=== PATIENT | female | born 2000 | race Caucasian/White ===

== ENCOUNTER 2018-06-05 14:09 | Emergency (ER) | payer MEDICAID ==
--- NOTE | 2018-06-05 14:31 | EDM.PDOC ---
ED HPI GENERAL MEDICAL PROBLEM - General Chief Complaint: Flank Pain Stated Complaint: KIDNEY PAIN Time Seen by Provider: 06/05/18 14:20 Source of Information: Reports: Patient, Family History Limitations: Reports: No Limitations - History of Present Illness INITIAL COMMENTS - FREE TEXT/NARRATIVE: Summer comes into [facility] ED with a week long hx of R CVA pain, dull and occasionally sharp at times. Pain is nonradiating, not associated with stooling or voiding, eating or fasting. There is no injury hx. She occasionally feels some nausea. She has tried no meds. - Related Data Allergies Allergy/AdvReac Type Severity Reaction Status Date / Time No Known Allergies Allergy Verified 06/05/18 14:22 Home Meds: Home Meds Ciprofloxacin HCl [Cipro] 250 mg PO BID #14 tablet 06/05/18 [Rx] ED ROS GENERAL - Review of Systems Review Of Systems: See Below Constitutional: Reports: No Symptoms HEENT: Reports: No Symptoms Respiratory: Reports: No Symptoms Cardiovascular: Reports: No Symptoms Endocrine: Reports: No Symptoms GI/Abdominal: Reports: Nausea : Reports: Other (R CVA pain) Musculoskeletal: Reports: Back Pain (R CVA) Skin: Reports: No Symptoms Neurological: Reports: No Symptoms Psychiatric: Reports: No Symptoms Hematologic/Lymphatic: Reports: No Symptoms Immunologic: Reports: No Symptoms ED EXAM,LOWER BACK PAIN/INJURY - Physical Exam Exam: See Below Exam Limited By: No Limitations General Appearance: Alert, WD/WN, No Apparent Distress, Obese Head: Atraumatic, Normocephalic Neck: Normal Inspection, Supple, Non-Tender, Full Range of Motion Respiratory/Chest: Lungs Clear, Normal Breath Sounds, Chest Non-Tender Cardiovascular: Regular Rate, Rhythm, No Murmur GI/Abdominal: Normal Bowel Sounds, Soft, Non-Tender, No Organomegaly, No Distention, No Mass (Female) Exam: Deferred Rectal (Female) Exam: Deferred Back Exam: Normal Inspection, Full Range of Motion, CVA Tenderness (R) Extremities: Normal Inspection, Normal Range of Motion, Non-Tender, No Pedal Edema, Normal Capillary Refill Neurological: Alert, Normal Mood/Affect, Normal Dorsiflexion, CN II-XII Intact, Normal Gait, No Motor/Sensory Deficits, Oriented x 3 Psychiatric: Normal Affect, Normal Mood Skin Exam: Warm, Dry, Intact, Normal Color, No Rash Lymphatic: No Adenopathy Course - Vital Signs Text/Narrative:: Following assessment, the UA noted 100 RBCs/HPF, 100 WBC/HPF, large bacteria, UC set up. The CBC and BMP were baseline. A subsequent noncontrast ABD-PELVIC CT was performed, noting no stone disease, normal appearance of kidneys and ureters, and some evidence of cystitis. I dispensed Cipro 250 mg bid for treatment. Last Recorded V/S: Last Vital Signs Temp 36.6 C 06/05/18 14:20 Pulse 127 H 06/05/18 14:20 Resp 22 H 06/05/18 14:20 BP 129/76 06/05/18 14:20 Pulse Ox 100 06/05/18 14:20 - Orders/Labs/Meds Orders: Active Orders 24 hr Category Date Time Status Abdomen Pelvis wo Cont [CT] Stat Exams 06/05/18 14:45 Taken CULTURE URINE [RM] Stat Lab 06/05/18 14:44 Ordered Labs: Laboratory Tests 06/05/18 06/05/18 06/05/18 Range/Units 14:15 15:00 15:00 WBC 8.6 (4.5-12.0) X10-3/uL RBC 4.83 (3.23-5.20) x10(6)uL Hgb 13.1 (11.5-15.5) g/dL Hct 40.1 (30.0-51.3) % MCV 83.1 (80-96) fL MCH 27.1 L (27.7-33.6) pg MCHC 32.6 (32.2-35.4) g/dL RDW 12.9 (11.5-15.5) % Plt Count 410 H (125-369) X10(3)uL MPV 8.4 (7.4-10.4) fL Neut % (Auto) 72.1 (46-82) % Lymph % (Auto) 19.6 (13-37) % Archer % (Auto) 6.1 (4-12) % Eos % (Auto) 2 (1.0-5.0) % Baso % (Auto) 1 (0-2) % Neut # (Auto) 6.2 (1.6-8.3) # Lymph # (Auto) 1.7 (0.6-5.0) # Archer # (Auto) 0.5 (0.0-1.3) # Eos # (Auto) 0.1 (0.0-0.8) # Baso # (Auto) 0.1 (0.0-0.2) # Sodium 140 (135-145) mmol/L Potassium 3.8 (3.5-5.3) mmol/L Chloride 103 (100-110) mmol/L Carbon Dioxide 25 (21-32) mmol/L BUN 15 (7-18) mg/dL Creatinine 1.0 (0.55-1.02) mg/dL Est Cr Clr Drug Dosing 78.14 mL/min Estimated GFR (MDRD) > 60 (>60) BUN/Creatinine Ratio 15.0 (9-20) Glucose 83 (80-116) mg/dL Calcium 9.2 (8.2-10.1) mg/dL Urine Color Yellow (YELLOW) Urine Appearance Cloudy (CLEAR) Urine pH 6.0 (5.0-6.5) Ur Specific [place] 1.020 (1.010-1.025) Urine Protein Trace (NEGATIVE) mg/dL Urine Glucose (UA) Normal (NORMAL) mg/dL Urine Ketones Negative (NEGATIVE) mg/dL Urine Occult Blood Large H (NEGATIVE) Urine Nitrite Negative (NEGATIVE) Urine Bilirubin Negative (NEGATIVE) Urine Urobilinogen Normal (NEGATIVE) mg/dL Ur Leukocyte Esterase Moderate H (NEGATIVE) Urine RBC >100 H (0-5) Urine WBC >100 H (0-5) Ur Squamous Epith Cells Many H (NS,R,O) Urine Bacteria Many H (NS) Departure - Departure Time of Disposition: 15:27 Disposition: Home, Self-Care 01 Condition: Fair Clinical Impression: UTI, Urinary tract infectious disease - Discharge Information *PRESCRIPTION DRUG MONITORING PROGRAM REVIEWED*: Not Applicable *COPY OF PRESCRIPTION DRUG MONITORING REPORT IN PATIENT MARYCHUY: Not Applicable Prescriptions: Ciprofloxacin HCl [Cipro] 250 mg PO BID #14 tablet Referrals: Honey Lema PA-C [Primary Care Provider] - Forms: ED Department Discharge - Problem List & Annotations (1) UTI, Urinary tract infectious disease SNOMED Code(s): 84424842 Code(s): N39.0 - URINARY TRACT INFECTION, SITE NOT SPECIFIED Status: Acute Annotation/Comment:: Suspected UTI. I dispensed Cipro 250 mg bid for a week. - Problem List Review Problem List Initiated/Reviewed/Updated: Yes - My Orders Last 24 Hours: My Active Orders 06/05/18 14:44 CULTURE URINE [RM] Stat 06/05/18 14:45 Abdomen Pelvis wo Cont [CT] Stat - Assessment/Plan Last 24 Hours: My Active Orders 06/05/18 14:44 CULTURE URINE [RM] Stat 06/05/18 14:45 Abdomen Pelvis wo Cont [CT] Stat Plan: Follow up with PCP.
--- NOTE | 2018-06-06 07:37 | CT ---
INDICATION: Right cva pain, hematuria. CT ABDOMEN AND PELVIS WITHOUT CONTRAST: Spiral 2.5 mm axial sections were obtained through the abdomen and pelvis without contrast - renal calculus protocol with sagittal and coronal reconstructions, 06/05/18 - no comparisons. Total exam DLP = 1,063.62 mGy-cm. Lower lung rodriguez and pleural spaces visualized appeared normal. The heart was normal in size. No pericardial effusion was seen. No gallstones were demonstrated in the gallbladder. The liver was unremarkable. The spleen, pancreas, adrenal glands, and kidneys were unremarkable without evidence of renal calcinosis or obstructive uropathy. The appendix is normal in appearance, visualized on coronal images #49 through # 62 and axial images #102 through #112. No free air or bowel obstruction was suggested. Mild thickening of the wall of the urinary bladder is noted, which may be on the basis of cystitis and should be correlated clinically. Bony structures appear to be grossly intact. No organomegaly, mass lesions, or free fluid collections were otherwise identified in the abdomen or pelvis. IMPRESSION: Mild thickening of the wall of the urinary bladder, which may be on the basis of cystitis - correlate clinically. Report was called to Dr. Scott at 1516 hours on 06/05/18. [facility]
== END 2018-06-05 15:33 | disposition home or self-care (01) ==
LOC: FB.ED 14:09
DX: N39.0 Urinary tract infection, site not specified (principal)
CPT/HCPCS: 36415; 74176; 80048; 81001; 85025; 87086; 87088; 87186; 99284-25